=== PATIENT | male | born 1985 | race Caucasian/White ===

== ENCOUNTER 2017-01-03 20:50 | Emergency (ER) | payer MEDICAID ==
[~2017-01-03] VITALS: Ht 177.8 cm; Wt 81.6 kg
[~2017-01-03 20:50] MED LIST: CLON1TAB4 PO; FAMO40TA35 PO; HAL1 PO; HAL2 PO; HYDR-1189 PO; LEVO500T20 PO; METR500T PO; vyvanse PO
[2017-01-03 20:56] VITALS: BP_SYST 153
--- NOTE | 2017-01-03 21:00 | NUR ---
Patient to ER bed 4 to gown for evaluation. Side rails up. Report given to Michael OBRIEN.
--- NOTE | 2017-01-03 21:12 | NUR ---
ER RAMU Nix at bedside for evaluation
--- NOTE | 2017-01-03 21:15 | NUR ---
Patient arrived to ED a/o x 4 with c/o flu like symptoms x 3 days. Patient reports non productive cough, and pain with cough, nasal discharge, generalized body aches. Patient denies N/V. Denies fever. Does not appear in immediate distress at this time. Skin warm, dry and pink. Will continue to monitor.
--- NOTE | 2017-01-03 21:25 | NUR ---
Respiratory therapy at bedside.
[2017-01-03] MEDS ORDERED: DEXAMETHASONE SOD PHOSPHATE 10 MG/ML VIAL IM ONE (21:30)
[2017-01-03] MEDS ORDERED: IPRATROPIUM/ALBUTEROL SULFATE 3 ML AMPUL.NEB INH ONE (21:30)
[2017-01-03] MEDS ORDERED: KETOROLAC TROMETHAMINE 60 MG/2 ML VIAL IM ONE (21:30)
[2017-01-03] MEDS ORDERED: IPRATROPIUM/ALBUTEROL SULFATE 3 ML AMPUL.NEB ONE (21:36)
[2017-01-03] MEDS ORDERED: KETOROLAC TROMETHAMINE 30 MG VIAL ONE (21:42)
[2017-01-03] MEDS ORDERED: DEXAMETHASONE SOD PHOSPHATE 10 MG/ML VIAL ONE (21:48)
[2017-01-03 22:02] VITALS: BP_SYST 153
--- NOTE | 2017-01-03 22:02 | NUR ---
Patient given written and verbal discharge instructions and verbalizes understanding. ER MD discussed with patient the results and treatment provided. Patient in stable condition. ID arm band removed. Rx of prednisone, motrin, tessalon perles and augmentin given. Patient educated on pain management and to follow up with PMD. Pain Scale 2/10 tolerable for patient. Opportunity for questions provided and answered.
== END 2017-01-03 22:02 | disposition home or self-care (01) ==
LOC: SED 20:50
DX: J01.90 Acute sinusitis, unspecified (principal); F17.200 Nicotine dependence, unspecified, uncomplicated; Z79.899 Other long term (current) drug therapy
CPT/HCPCS: 71010; 94640; 96372; 99284; J1100; J1885

== ENCOUNTER 2017-02-21 10:33 | Emergency (ER) | payer MEDICAID ==
[~2017-02-21] VITALS: Ht 177.8 cm; Wt 81.6 kg
[2017-02-21 10:44] VITALS: BP_SYST 132
[2017-02-21 11:30] LABS: BASOPHILS # (AUTO) 0.1 K/uL (0.0-0.2); BASOPHILS % (AUTO) 0.8 % (0.0-2.0); EOSINOPHILS # (AUTO) 0.2 K/uL (0.0-0.4); EOSINOPHILS % (AUTO) 2.1 % (0.0-4.0); HEMATOCRIT 42.5 % (36-54); HEMOGLOBIN 14.2 g/dL (14.0-18.0); LYMPHOCYTES # (AUTO) 2.3 K/uL (1.0-5.5); LYMPHOCYTES % (AUTO) 30.2 % (20.5-51.5); MEAN CORPUSCULAR HEMOGLOBIN 31 pg (27-31); MEAN CORPUSCULAR HGB CONC 33 % (32-36); MEAN CORPUSCULAR VOLUME 92 fL (79.0-98.0); MONOCYTES # (AUTO) 0.7 K/uL (0.0-1.0); MONOCYTES % (AUTO) 8.7 % (1.7-9.3); NEUTROPHILS # (AUTO) 4.4 K/uL (1.8-7.7); NEUTROPHILS % (AUTO) 58.2 % (40.0-70.0); PLATELET COUNT (AUTO) 254 K/uL (130-430); RED BLOOD CELL COUNT(AUTO) 4.62 MIL/uL (4.2-6.2); RED CELL DISTRIBUTION WIDTH 12.7 % (9.0-15.0); WHITE BLOOD COUNT (AUTO) 7.7 K/uL (4.8-10.8)
[2017-02-21] MEDS ORDERED: SUMAtriptan SUCCINATE 6 MG/0.5 ML VIAL SUBCUT ONE (11:30)
[2017-02-21 11:43] LABS: CSF APPEARANCE CLEAR (CLEAR); CSF COLOR COLORLESS (COLORLESS)
[2017-02-21 12:00] LABS: CALCIUM 8.8 mg/dL (8.4-11.0); POTASSIUM 4.2 mmol/L (3.5-5.1)
[2017-02-21 12:14] LABS: CSF GLUCOSE 60 mg/dL (40-70)
[2017-02-21] MEDS ORDERED: MORPHINE SULFATE 10 MG/ML VIAL IM ONE (12:30)
[2017-02-21] MEDS ORDERED: ONDANSETRON 4 MG ODT TAB PO ONE (12:30)
[2017-02-21 12:42] LABS: CSF PROTEIN 30 mg/dL (15-45)
[2017-02-21 12:47] LABS: CSF RED BLOOD CELL COUNT #4 0 /uL (0-0); CSF WHITE BLOOD CELL COUNT #4 2 /uL (0-5)
[2017-02-21 15:05] VITALS: BP_SYST 139
== END 2017-02-21 15:05 | disposition home or self-care (01) ==
LOC: SED 10:33
DX: R51 Headache (principal); Z79.899 Other long term (current) drug therapy
CPT/HCPCS: 36415; 62270; 70450; 80048; 82947; 84157; 85025; 85048; 87070; 87205; 87899; 89051 ×2; 96372; 99285; J2270; J3030; Q0162

== ENCOUNTER 2018-07-26 16:27 | Emergency (ER) | payer MEDICAID, OTHER ==
[~2018-07-26] VITALS: Ht 152.4 cm; Wt 93.4 kg
[~2018-07-26 16:27] MED LIST changes: -CLON1TAB4 PO; +CLON1TAB5 PO; -FAMO40TA35 PO; +FAMO40TA71 PO
[2018-07-26 16:40] VITALS: BP_SYST 165
--- NOTE | 2018-07-26 16:44 | NUR ---
Patient triaged and placed in waiting room. VSS and patient appears in no acute distress at this time. Accompanied by SELF, awaiting available bed, and MD notified of need for MSE.
--- NOTE | 2018-07-26 19:25 | NUR ---
Patient to ER bed 06 to gown for evaluation. Side rails up.
--- NOTE | 2018-07-26 19:32 | NUR ---
PT CAME IN TO THE ED FOR L LOWER ABD/ PT STATES THAT HE HAS HAD IT BEFORE ABOUT A YEAR AGO. PT STATES THAT IT MURDOCK. HE SDAYS THAT LAST TIME HE WAS HERE THE INTESNTNES WAS TWISTED LAST TIME HE WAS HERE ABOUT 2 YEARS AGO AND HE WAS ADMITTED FOR A FEW DAYS. BUT PT SAYS THAT THE PAIN HAS COEM BACK AND HAS BEEN BURNING FOR THE PAST 2 WEEKS. PT SAYS WHEN HE MOVES CERTAIN WAY THE PAIN GETS WORSE. DENIES TAKING ANYTHING FOR THE PAIN PRIOR TO COMING INTO THE ED. DENIES N/V/D OR FEVER. DENIES HAVING ANY ISSUES EATING OR DRINKING. NKDA. DENIES ANY OTHER PRIOR MEDICAL HISTORY. NO OTHER COMPLAINTS/INJURIES NOTED. WILL CONT. TO MONITOR.
--- NOTE | 2018-07-26 19:42 | NUR ---
Vu Rae at bedside examining patient.
[2018-07-26 19:43] LABS: HEMATOCRIT 44.7 % (36-54); HEMOGLOBIN 15.3 g/dL (14.0-18.0); MEAN CORPUSCULAR HEMOGLOBIN 31 pg (27-31); MEAN CORPUSCULAR HGB CONC 34 % (32-36); MEAN CORPUSCULAR VOLUME 90 fL (79.0-98.0); PLATELET COUNT (AUTO) 264 K/uL (130-430); RED BLOOD CELL COUNT(AUTO) 4.98 MIL/uL (4.2-6.2); RED CELL DISTRIBUTION WIDTH 12.8 % (9.0-15.0)
[2018-07-26 19:44] LABS: BASOPHILS % (AUTO) 0.6 % (0.0-2.0); EOSINOPHILS # (AUTO) 0.2 K/uL (0.0-0.4); EOSINOPHILS % (AUTO) 2.2 % (0.0-4.0); LYMPHOCYTES # (AUTO) 2.8 K/uL (1.0-5.5); LYMPHOCYTES % (AUTO) 35.1 % (20.5-51.5); MONOCYTES # (AUTO) 0.6 K/uL (0.0-1.0); MONOCYTES % (AUTO) 7.8 % (1.7-9.3); NEUTROPHILS # (AUTO) 4.4 K/uL (1.8-7.7); NEUTROPHILS % (AUTO) 54.3 % (40.0-70.0)
[2018-07-26 19:48] LABS: BILIRUBIN,URINE NEGATIVE (NEGATIVE); BLOOD, URINE NEGATIVE (NEGATIVE); CLARITY/URINE CLEAR (CLEAR); COLOR,URINE YELLOW (YELLOW); GLUCOSE,URINE NEGATIVE (NEGATIVE); KETONES,URINE NEGATIVE (NEGATIVE); LEUKOCYTE ESTERASE ,URINE NEGATIVE (NEGATIVE); NITRITE, URINE NEGATIVE (NEGATIVE); PROTEIN URINE NEGATIVE (NEGATIVE)
[2018-07-26 19:49] LABS: UROBILINOGEN,URINE 0.2 (0.2-1.0)
[2018-07-26 19:51] LABS: POTASSIUM 3.7 mmol/L (3.5-5.1)
[2018-07-26 19:52] LABS: CALCIUM 9.4 mg/dL (8.4-11.0); CREATININE 0.88 mg/dL (0.55-1.30)
[2018-07-26 19:55] LABS: ALBUMIN 4.2 g/dL (3.4-4.8); TOTAL BILIRUBIN 0.3 mg/dL (0.0-1.0)
[2018-07-26 20:51] VITALS: BP_SYST 165
--- NOTE | 2018-07-26 20:51 | NUR ---
Patient given written and verbal discharge instructions and verbalizes understanding. ER MD Dr. Mills discussed with patient the results and treatment provided. Patient in stable condition. ID arm band removed. IV catheter removed intact and dressing applied, no active bleeding. Rx of motrin given. Patient educated on pain management and to follow up with PMD within 2-3 days. Pain Scale 0/10. Opportunity for questions provided and answered. Medication side effect fact sheet provided.
== END 2018-07-26 20:51 | disposition home or self-care (01) ==
LOC: SED 16:27
DX: R10.32 Left lower quadrant pain (principal); K21.9 Gastro-esophageal reflux disease without esophagitis; Z79.899 Other long term (current) drug therapy
CPT/HCPCS: 36415; 74021; 80053; 81003; 83690-TC; 85025; 99284

== ENCOUNTER 2018-08-10 13:34 | Emergency (ER) | payer OTHER ==
[~2018-08-10] VITALS: Ht 177.8 cm; Wt 93.0 kg
[2018-08-10] MEDS ORDERED: NACL 0.9% 1,000 ML IV ONE (13:39)
[2018-08-10 13:46] VITALS: BP_SYST 145
[2018-08-10] MEDS ORDERED: ACETAMINOPHEN 500 MG TABLET PO ONE (14:00)
[2018-08-10 14:16] LABS: BASOPHILS % (AUTO) 0.8 % (0.0-2.0); EOSINOPHILS # (AUTO) 0.1 K/uL (0.0-0.4); EOSINOPHILS % (AUTO) 1.9 % (0.0-4.0); HEMATOCRIT 46.3 % (36-54); HEMOGLOBIN 15.4 g/dL (14.0-18.0); LYMPHOCYTES # (AUTO) 1.3 K/uL (1.0-5.5); LYMPHOCYTES % (AUTO) 23.6 % (20.5-51.5); MEAN CORPUSCULAR HEMOGLOBIN 30 pg (27-31); MEAN CORPUSCULAR HGB CONC 33 % (32-36); MEAN CORPUSCULAR VOLUME 90 fL (79.0-98.0); MONOCYTES # (AUTO) 0.4 K/uL (0.0-1.0); MONOCYTES % (AUTO) 6.5 % (1.7-9.3); NEUTROPHILS # (AUTO) 3.6 K/uL (1.8-7.7); NEUTROPHILS % (AUTO) 67.2 % (40.0-70.0); PLATELET COUNT (AUTO) 254 K/uL (130-430); RED BLOOD CELL COUNT(AUTO) 5.16 MIL/uL (4.2-6.2); RED CELL DISTRIBUTION WIDTH 12.4 % (9.0-15.0); WHITE BLOOD COUNT (AUTO) 5.4 K/uL (4.8-10.8)
[2018-08-10 14:33] LABS: CALCIUM 9.5 mg/dL (8.4-11.0); CREATININE 0.83 mg/dL (0.55-1.30); POTASSIUM 3.9 mmol/L (3.5-5.1)
[2018-08-10 14:37] LABS: ALBUMIN 4.4 g/dL (3.4-4.8); TOTAL BILIRUBIN 0.4 mg/dL (0.0-1.0)
[2018-08-10 15:20] VITALS: BP_SYST 145
== END 2018-08-10 15:20 | disposition home or self-care (01) ==
LOC: SED 13:34
DX: G44.209 Tension-type headache, unspecified, not intractable (principal); F41.9 Anxiety disorder, unspecified; I10 Essential (primary) hypertension; K21.9 Gastro-esophageal reflux disease without esophagitis; Z79.899 Other long term (current) drug therapy
CPT/HCPCS: 36415; 80053; 82150; 83690; 85025; 96360; 99283; J7030